=== PATIENT | female | born 1950 | race Caucasian/White ===

== ENCOUNTER → 2020-05-06 | Outpatient (CLI) | payer MEDICARE, OTHER ==
[~2020-05-06] MED LIST: ASCO100018 PO; ASPI81TA45 PO; CALC-455 PO; CALC600T60 PO; HYDR12.517 PO; LEVO50TA91 PO; LOSA50TA14 PO; LUTE1CAP3 PO; MULT-449 PO; VITA-74 PO
[2020-05-06 11:56] LABS: ALANINE AMINOTRANSFERASE 28 U/L (12-78); ALBUMIN 4.2 g/dL (3.4-5.0); ANION GAP 6 mmol/L (5-15); CALCIUM 9.1 mg/dL (8.5-10.1); CHLORIDE 102 mmol/L (98-107); CREATININE 0.66 mg/dL (0.55-1.02)
[2020-05-06 11:58] LABS: ALKALINE PHOSPHATASE 56 U/L (45-117); BILIRUBIN,TOTAL 0.6 mg/dL (0.2-1.0); TOTAL PROTEIN 7.4 g/dL (6.4-8.2)
== END | disposition home or self-care (01) ==
LOC: STAR 10:16
PROVIDERS: ATTEND Orthopaedic Surgery
DX: Z01.812 Encounter for preprocedural laboratory examination (principal); Z20.828 Contact with and (suspected) exposure to other viral communicable diseases; M25.511 Pain in right shoulder; M75.41 Impingement syndrome of right shoulder; M75.121 Complete rotator cuff tear or rupture of right shoulder, not specified as traumatic; I21.19 ST elevation (STEMI) myocardial infarction involving other coronary artery of inferior wall
CPT/HCPCS: 80053; 87635; 93005

== ENCOUNTER 2020-05-12 06:52 | Day surgery (SDC) | payer MEDICARE, OTHER ==
[~2020-05-12] VITALS: Ht 154.9 cm; Wt 55.0 kg
[2020-05-12] MEDS ORDERED: CHLORHEXIDINE 15 ML UDC MM STA (07:07)
[2020-05-12 07:09] VITALS: BP 159/90
[2020-05-12] MEDS ORDERED: LACTATED RINGERS 1,000 ML IV SCH (07:30)
[2020-05-12] MEDS ORDERED: MIDAZOLAM 1 MG/ML, 2ML ONE (07:42)
[2020-05-12] MEDS ORDERED: FENTANYL PF 100 MCG/2ML ONE (07:42)
[2020-05-12] MEDS ORDERED: GLYCOPYRROLATE 0.2MG/1ML, 5ML ONE (08:19)
[2020-05-12] MEDS ORDERED: PROPOFOL 10 MG/ML, 20ML ONE (08:19)
[2020-05-12] MEDS ORDERED: ROCURONIUM 10MG/ML,5ML ONE (08:19)
[2020-05-12] MEDS ORDERED: CEFAZOLIN 1,000 MG ONE (08:19)
[2020-05-12] MEDS ORDERED: LIDOCAINE-MPF 2% ,5ML ONE (08:19)
[2020-05-12] MEDS ORDERED: DEXAMETHASONE 4 MG/ML, 1ML ONE (08:19)
[2020-05-12] MEDS ORDERED: NEOSTIGMINE 1 MG/ML, 10ML ONE (08:19)
[2020-05-12] MEDS ORDERED: ONDANSETRON 2MG/ML, 2ML ONE (08:19)
[2020-05-12] MEDS ORDERED: OXYcodone 5 MG/5 ML ORAL.SOL UDC PO PRN (09:00)
[2020-05-12] MEDS ORDERED: DIAZEPAM 5 MG/ML, 2ML IVPush PRN (09:00)
[2020-05-12] MEDS ORDERED: LOSARTAN 50MG TABLET PO SCH (09:00)
[2020-05-12] MEDS ORDERED: MULTIVITAMIN 1 TABLET PO SCH (09:00)
[2020-05-12] MEDS ORDERED: LABETALOL 5MG/ML, 20ML IV PRN (09:00)
[2020-05-12] MEDS ORDERED: hydrALAzine 20 MG/ML, 1ML IV PRN (09:00)
[2020-05-12] MEDS ORDERED: FENTANYL PF 100 MCG/2ML IV PRN (09:00)
[2020-05-12] MEDS ORDERED: HYDROCHLOROTHIAZIDE 12.5 MG CAPSULE PO SCH (09:00)
[2020-05-12] MEDS ORDERED: DIPHENHYDRAMINE 50 MG/ML, 1ML IVPush PRN (09:00)
[2020-05-12] MEDS ORDERED: HYDROmorphone 1 MG/ML, 1ML INJ IVPush PRN (09:00)
[2020-05-12] MEDS ORDERED: PROMETHAZINE 25 MG/ML, 1ML IVPush PRN (09:00)
[2020-05-12] MEDS ORDERED: ONDANSETRON 2MG/ML, 2ML IVPush PRN (09:00)
[2020-05-12] MEDS ORDERED: MEPERIDINE/PF 25MG/0.5ML IVPush PRN (09:00)
[2020-05-12] MEDS ORDERED: ASPIRIN 81 MG TABLET EC PO SCH (09:00)
[2020-05-12] MEDS ORDERED: BUPIVACAINE/PF-EPI 0.25% 1:200K INFIL ONE (09:37)
[2020-05-12] MEDS ORDERED: LIDOCAINE 1%-EPI 1:100K, 30ML INFIL ONE (09:37)
== END 2020-05-12 11:55 | disposition home or self-care (01) ==
LOC: OUT 06:52
PROVIDERS: ATTEND Orthopaedic Surgery
DX: S46.011A Strain of muscle(s) and tendon(s) of the rotator cuff of right shoulder, initial encounter (principal); S43.431A Superior glenoid labrum lesion of right shoulder, initial encounter; S46.111A Strain of muscle, fascia and tendon of long head of biceps, right arm, initial encounter; M75.41 Impingement syndrome of right shoulder; M19.011 Primary osteoarthritis, right shoulder; M94.211 Chondromalacia, right shoulder; M65.811 Other synovitis and tenosynovitis, right shoulder; G89.18 Other acute postprocedural pain; I10 Essential (primary) hypertension; Z87.891 Personal history of nicotine dependence; Z88.0 Allergy status to penicillin; Z88.5 Allergy status to narcotic agent; Z90.49 Acquired absence of other specified parts of digestive tract; Z90.89 Acquired absence of other organs; Z98.890 Other specified postprocedural states; W18.39XA Other fall on same level, initial encounter; Y93.89 Activity, other specified; Y92.89 Other specified places as the place of occurrence of the external cause; Y99.8 Other external cause status
CPT/HCPCS: 29823; 29824; 29826; 29827; 29828; 64415; C1713; J0690; J1100; J2250; J2405; J2704; J2710; J3010; J7120